=== PATIENT | male | born 1950 | race Caucasian/White ===

== ENCOUNTER 2017-02-28 07:46 | Day surgery (SDC) | payer OTHER ==
[2017-02-21 12:40] VITALS: BMI 20.4
[2017-02-28] MEDS ORDERED: PROPOFOL 20 ML ONE ×2 (07:48)
[2017-02-28] MEDS ORDERED: LIDOCAINE HCL/PF 2% SDV 5ML VIAL ONE (07:49)
[2017-02-28 08:00] VITALS: TEMP 97.9
[2017-02-28 10:02] VITALS: BP 129/81; PULSE 64
== END 2017-02-28 10:00 | disposition home or self-care (01) ==
LOC: FASU-ENDO 07:46
PROVIDERS: ATTEND Internal Medicine Gastroenterology
PROC: 0DJD8ZZ Inspection of Lower Intestinal Tract, Via Natural or Artificial Opening Endoscopic (ICD-10-PCS; principal; 2017-02-28 08:55)
DX: Z86.010 Personal history of colon polyps (principal); Z83.71 Family history of colonic polyps

== ENCOUNTER 2020-02-07 09:40 | Emergency (ER) | payer BC, OTHER ==
--- NOTE | 2020-02-07 09:48 | PDOC ---
History of Present Illness - General Chief Complaint: Pain Stated Complaint: RUQ PAIN Time Seen by Provider: 02/07/20 09:47 - History of Present Illness Initial Comments: 02/07/20 11:20 Pt presents to the ED complaining of a 5 day history of epigastric "tightness" that is worsened by eating. Pain was severe 5 days ago, but is mild now. Patient denies nausea or vomiting and is tolerating PO, but has been eating very limited quantities. Denies fever. Complains of constipation which has been chronic since 2017. Last bowel movement was three days ago. Patient cannot remember the last time he passed flatus. Denies dysuria. Patient described his symptoms to Dr. Denny, who advised him to come to the ED. Past History - Medical History Allergies/Adverse Reactions: Allergies Allergy/AdvReac Type Severity Reaction Status Date / Time Penicillins Allergy Intermediate Rash Verified 02/28/17 08:04 Home Medications: Ambulatory Orders Polyethylene Glycol 3350 [Miralax (For Daily Use) -] 17 gm PO BID PRN 02/07/20 Anemia: No Asthma: No Cancer: No Cardiac Disorders: No CVA: No COPD: No CHF: No Dementia: No Diabetes: No GI Disorders: Yes (PRONE TO CONSTIPATION) Disorders: No HTN: No Hypercholesterolemia: Yes (DX 2011) Liver Disease: No Seizures: No Thyroid Disease: Yes (ZOHRA'S THYROIDITIS) - Surgical History Abdominal Surgery: No Appendectomy: No Cardiac Surgery: No Cholecystectomy: No Lung Surgery: No Neurologic Surgery: Yes (TRIGEMINAL -2007) Orthopedic Surgery: Yes (LEFT KNEE ARTHROSCOPY-2005) - Psycho-Social/Smoking History Smoking History: Never smoked Have you smoked in the past 12 months: No Review of Systems - Review of Systems Able to Perform ROS?: Yes Constitutional: No: Symptoms Reported, See HPI, Chills, Diaphoresis, Fever, Loss of Appetite, Malaise, Night Sweats, Weakness, Weight Stable, Unintentional Wgt. Loss, Unexplained wgt Loss, Other HEENTM: No: Symptoms Reported, See HPI, Eye Pain, Blurred Vision, Tearing, Recent change in vision, Double Vision, Cataracts, Ear Pain, Ocular Prothesis, Ear Discharge, Nose Pain, Nose Congestion, Tinnitus, Nose Bleeding, Hearing Loss, Throat Pain, Throat Swelling, Mouth Pain, Dental Problems, Difficulty Swallowing, Mouth Swelling, Other Respiratory: No: Symptoms reported, See HPI, Cough, Orthopnea, Shortness of Breath, SOB with Exertion, SOB at Rest, Stridor, Wheezing, Productive cough, Hemoptysis, Other Cardiac (ROS): No: Symptoms Reported, See HPI, Chest Pain, Edema, Irregular Heart Rate, Lightheadedness, Palpitations, Syncope, Chest Tightness, Other ABD/GI: Yes: Constipated, Abdominal cramping. No: Symptoms Reported, See HPI, Abdominal Distended, Abd. Pain w/ defecation, Blood Streaked Bowels, Diarrhea, Difficulty Swallowing, Nausea, Poor Appetite, Poor Fluid Intake, Rectal Bleedi ng, Vomiting, Indigestion, Tarry Stools, Other : No: Symptoms Reported, See HPI, Burning, Dysuria, Discharge, Frequency, Flank Pain, Hematuria, Incontinence, Pain, Urgency, Testicular Mass, Testicular Swelling, Lesions, Testicular Pain, Other Musculoskeletal: No: Symptoms Reported, See HPI, Back Pain, Gout, Joint Pain, Joint Swelling, Muscle Pain, Muscle Weakness, Neck Pain, Joint Stiffness, Other All Other Systems: Reviewed and Negative *Physical Exam - Physical Exam 02/07/20 11:33 gen: alert, NAD CV: rrr no mr/g Pulm: CTA b/l Abdomen:soft, non tender, non distended no guarding or rebound ext: no edema or tenderness. ED Treatment Course - LABORATORY CBC & Chemistry Diagram: 02/07/20 11:00 02/07/20 11:00 Medical Decision Making - Medical Decision Making 02/07/20 12:04 Pt presents to the ED complaining of constipation and epigastric tightness. Differential includes biliary disease, gastritis, less likely obstruction or ACS. Will check labs and CT abdomen, cardiac enzymes and reassess. EKG is normal. 02/07/20 14:15 CT shows slight bowel dilation consistent with illeus, but is otherwise negative. Patient tolerated Po in the ED and feels improved. WIll discharge home with instructions to follow up with Dr. Denny and to return to the ED for worsening symptoms. Discharge - Discharge Information Problems reviewed: Yes Clinical Impression/Diagnosis: Abdominal pain Qualifiers: Abdominal location: epigastric Qualified Code(s): R10.13 - Epigastric pain Condition: Good Disposition: HOME - Admission No - Follow up/Referral Referrals: Lasha Denny MD [Primary Care Provider] - - Patient Discharge Instructions Patient Printed Discharge Instructions: DI for Abdominal Pain-Adult Additional Instructions: you came to the ED for abdominal pain. We did a cat scan that showed no acute findings, and blood work that was normal. you should return to the ED for worsening pain, pain with fever, nausea or vomiting. Call Dr. Denny tomorrow for follow up. - Post Discharge Activity
[2020-02-07 09:53] VITALS: BMI 21.4
[2020-02-07] MEDS ORDERED: SODIUM CHLORIDE 0.9% 500 ML INFUS.BAG IV ONE (11:13)
[2020-02-07 11:27] LABS: EOS % 0.3 % (0-4.5); HEMATOCRIT 46.4 % (35.4-49); HEMOGLOBIN 16.1 GM/dl (11.7-16.9); LYMPH % 10.8 % (8-40); MCH 30.8 pg (25.7-33.7); MCHC 34.7 g/dl (32.0-35.9); MEAN PLT VOLUME 9.9 fl (7.5-11.1); MONO % 10.5 % (3.8-10.2); NEUT % 77.4 % (42.8-82.8); PLATELET COUNT 190 K/MM3 (134-434); RBC 5.21 M/mm3 (4.00-5.60); RDW 12.6 % (11.9-15.9); WHITE BLOOD COUNT 5.3 K/mm3 (4.0-10.8)
--- NOTE | 2020-02-07 11:29 | EKG ---
Test Reason : Blood Pressure : / mmHG Vent. Rate : 095 BPM Atrial Rate : 095 BPM P-R Int : 110 ms QRS Dur : 084 ms QT Int : 362 ms P-R-T Axes : 069 -42 051 degrees QTc Int : 454 ms SINUS RHYTHM WITH SHORT NE LEFT AXIS DEVIATION SEPTAL INFARCT , AGE UNDETERMINED ABNORMAL ECG WHEN COMPARED WITH ECG OF 13-SEP-2000 15:58, QRS AXIS SHIFTED LEFT SEPTAL INFARCT IS NOW PRESENT Confirmed by YANDEL KOO MD ([id number]) on 02/07/2020 11:29:12 AM Referred By: SHAWANDA Confirmed By:YANDEL KOO MD
[2020-02-07 11:35] LABS: BILIRUBIN,TOTAL 1.5 mg/dl (0.2-1); CALCIUM 9.5 mg/dl (8.5-10); POTASSIUM 4.1 mmol/L (3.5-5.1); TOT PROT 7.4 g/dl (6.4-8.2)
[2020-02-07 12:50] VITALS: BP 155/85; PULSE 83; TEMP 98.1
== END 2020-02-07 14:40 | disposition home or self-care (01) ==
LOC: FER 09:40
DX: R10.13 Epigastric pain (principal)
CPT/HCPCS: 36415; 74177-TC; 80053; 81003; 82550; 84484; 85025; 93005; 99285-25; Q9967

== ENCOUNTER 2021-01-11 00:55 | Emergency (ER) | payer BC, OTHER ==
[2021-01-11 01:02] VITALS: TEMP 98.2; BMI 21.7
[2021-01-11] MEDS ORDERED: ACETAMINOPHEN 1000 MG/100 ML VIAL (NON FORMULARY) IVPB ONE (01:20)
[2021-01-11] MEDS ORDERED: ACETAMINOPHEN INJECTION 100 ML IVPB ONE (01:23)
[2021-01-11 01:59] LABS: EOS % 0.2 % (0-4.5); HEMOGLOBIN 14.5 GM/dL (11.7-16.9); LYMPH % 12.8 % (8-40); MCH 31.2 pg (25.7-33.7); MCHC 34.5 g/dl (32.0-35.9); MEAN CELL VOLUME 90.4 fl (80-96); MONO % 8.2 % (3.8-10.2); NEUT % 77.8 % (42.8-82.8); PLATELET COUNT 162 10^3/uL (134-434); RBC 4.65 M/mm3 (4.00-5.60); RDW 13.6 % (11.9-15.9); WHITE BLOOD COUNT 6.1 K/mm3 (4.0-10.0)
[2021-01-11 02:18] LABS: CHLORIDE 105 mmol/L (98-107); SODIUM 140 mmol/L (136-145)
[2021-01-11 02:20] LABS: CALCIUM 8.5 mg/dL (8.5-10.1)
[2021-01-11 02:21] LABS: ALBUMIN 3.9 g/dl (3.4-5.0); ANION GAP 7 MMOL/L (8-16); BLOOD UREA NITROGEN 5.5 mg/dL (7-18); CO2 28 mmol/L (21-32)
[2021-01-11 02:24] LABS: SGOT/AST 16 U/L (15-37); SGPT/ALT 20 U/L (13-61)
[2021-01-11 02:26] LABS: BILIRUBIN,TOTAL 0.7 mg/dL (0.2-1); TOT PROT 6.5 g/dl (6.4-8.2)
[2021-01-11 02:27] VITALS: BP 141/78; PULSE 76
[2021-01-11 02:27] LABS: ALK PHOS 60 U/L (45-117)
[2021-01-11 02:49] LABS: CREATININE 0.7 mg/dL (0.55-1.3); GLUCOSE,RANDOM 105 mg/dL (74-106)
== END 2021-01-11 03:35 | disposition home or self-care (01) ==
LOC: FER 00:55
PROC: 3E0333Z Introduction of Anti-inflammatory into Peripheral Vein, Percutaneous Approach (ICD-10-PCS; principal; 2021-01-11)
DX: R51.9 Headache, unspecified (principal); I10 Essential (primary) hypertension
CPT/HCPCS: 36415; 70450-TC; 80053; 84484; 85025; 93005; 99285-25; J0131

== ENCOUNTER 2021-10-02 08:14 | Day surgery (SDC) | payer BC ==
[2021-09-28 11:09] VITALS: BMI 21.1
[2021-10-02] MEDS ORDERED: LIDOCAINE HCL/PF 2% SDV 5ML VIAL ONE (08:56)
[2021-10-02] MEDS ORDERED: PROPOFOL 20 ML ONE (08:56)
[2021-10-02 10:12] VITALS: TEMP 98
[2021-10-02 10:15] VITALS: BP 131/72; PULSE 70
== END 2021-10-02 10:18 | disposition home or self-care (01) ==
LOC: FASU-ENDO 08:14
PROVIDERS: ATTEND Internal Medicine Gastroenterology
PROC: 0DJD8ZZ Inspection of Lower Intestinal Tract, Via Natural or Artificial Opening Endoscopic (ICD-10-PCS; principal; 2021-10-02 09:08)
DX: Z86.010 Personal history of colon polyps (principal); K62.5 Hemorrhage of anus and rectum; K59.00 Constipation, unspecified

== ENCOUNTER 2023-01-13 13:14 | Emergency (ER) | payer BC, OTHER ==
[2023-01-13 13:20] VITALS: BMI 21.7
[2023-01-13 15:22] LABS: EPI CELLS 2 /uL (0-25.1); HYALINE CASTS 0 /uL (0-3.1); URINE APPEARANCE CLEAR; URINE BACTERIA 10 /uL (0-1359); URINE BILIRUBIN NEGATIVE (NEGATIVE); URINE COLOR YELLOW; URINE GLUCOSE (UA) NEGATIVE (NEGATIVE); URINE KETONE TRACE (NEGATIVE); URINE LEUK ESTERASE NEGATIVE (NEGATIVE); URINE NITRITE NEGATIVE (NEGATIVE); URINE PROTEIN NEGATIVE (NEGATIVE); URINE RBC 5 /uL (0-23.9); URINE UROBILINOGEN 0.2 mg/dL (0.2-1.0); URINE WBC 0 /uL (0-25.8)
[2023-01-13 15:37] VITALS: BP 133/78; PULSE 83; RESP 19; TEMP 98.2
== END 2023-01-13 16:06 | disposition home or self-care (01) ==
LOC: JER 13:14
DX: R39.198 Other difficulties with micturition (principal); R33.9 Retention of urine, unspecified; R10.30 Lower abdominal pain, unspecified
CPT/HCPCS: 81003; 87086; 99283-25

== ENCOUNTER 2023-01-14 13:15 | Emergency (ER) | payer OTHER ==
[2023-01-14 13:25] VITALS: BP 117/72; PULSE 80; RESP 18; TEMP 98.2; BMI 21.1
== END 2023-01-14 15:00 | disposition home or self-care (01) ==
LOC: JER 13:15
PROC: 0T9B70Z Drainage of Bladder with Drainage Device, Via Natural or Artificial Opening (ICD-10-PCS; principal; 2023-01-14)
DX: T83.028A Displacement of other urinary catheter, initial encounter (principal); Y84.6 Urinary catheterization as the cause of abnormal reaction of the patient, or of later complication, without mention of misadventure at the time of the procedure
CPT/HCPCS: 51702; 99283-25

== ENCOUNTER 2023-01-16 10:11 | Emergency (ER) | payer OTHER ==
[2023-01-16 10:14] VITALS: RESP 18; BMI 21.1
[2023-01-16] MEDS ORDERED: BACITRACIN 0.9 GM PACKET ONE (10:43)
[2023-01-16 13:07] VITALS: BP 107/64; PULSE 78; TEMP 98.6
== END 2023-01-16 13:07 | disposition home or self-care (01) ==
LOC: JER 10:11
DX: I86.1 Scrotal varices (principal); N43.3 Hydrocele, unspecified; N50.89 Other specified disorders of the male genital organs
CPT/HCPCS: 76870-TC; 99284-25